=== PATIENT | female | born 1995 | race Caucasian/White ===

== ENCOUNTER → 2019-02-20 14:44 | Outpatient (CLI) | payer OTHER, SELFPAY ==
--- NOTE | 2019-02-20 | DI.US.S_ITS ---
PROCEDURE: US PELVIC COMPLETE INDICATIONS: ACUTE PELVIC PAIN TECHNIQUE: Real-time scanning was performed of the pelvic organs, with image documentation. Additional endovaginal scanning was necessary due to incomplete visualization of the adnexal and endometrial structures by transabdominal scanning. COMPARISON: None. FINDINGS: Transabdominal scanning: Limited scanning through the kidneys shows no hydronephrosis. No pathologic free abdominal or pelvic fluid. Endovaginal scanning: Uterus: Uterus is normal in size at 7.1 x 3.1 x 4.8 cm. The endometrium measures 3-4 mm in combined thickness. Appropriate position of IUD Ovaries: Right ovary measures 3.4 x 1.9 x 1.6 cm. Left ovary measures 3.5 x 2.6 x 1.9 cm. 1.9 cm left ovarian physiologic follicle. Doppler interrogation demonstrates expected bilateral ovarian waveforms IMPRESSION: Appropriately positioned IUD. Elsewhere, no acute abnormality seen. Dictated by: Terry Banks M.D. on 02/20/2019 at 15:42 Approved by: Terry Banks M.D. on 02/20/2019 at 15:44
== END ==
PROVIDERS: Visit Provider Registered Nurse
DX: R10.2 Pelvic and perineal pain (principal); Z97.5 Presence of (intrauterine) contraceptive device
CPT/HCPCS: 76830; 76856